=== PATIENT | female | born 1960 | race Hispanic/Latino ===

== ENCOUNTER → 2017-04-11 | Outpatient (CLI) | payer MEDICARE ==
[~2017-04-11] MED LIST: AMLO5TAB2 PO; ASPI-1005 PO; ATOR20TA65 PO; CARV25TA PO; CLOP75TA32 PO; DULO30CA51 PO; HYDR-4153 PO; HYOS-7 PO; INSU3INS5 SQ; LINA5TAB PO; LISI-613 PO; METO200T49 PO; METO25 PO; METO5 PO; METO50 PO; METO50TA18 PO; ONDA4TAB10 PO; REGADENOSON 0.4 MG/5 ML PF SYG IVP SCH; TRAM50TA4 PO; TYL3 PO
== END | disposition home or self-care (01) ==
LOC: RAH 04-04 09:26
PROVIDERS: ATTEND Family Medicine
DX: I51.7 Cardiomegaly (principal); I34.0 Nonrheumatic mitral (valve) insufficiency; R94.31 Abnormal electrocardiogram [ECG] [EKG]
CPT/HCPCS: 78452; 93017; 93306; 96374; A9500 ×2; J2785

== ENCOUNTER → 2017-06-15 | Outpatient (CLI) | payer MEDICARE ==
[~2017-06-15] MED LIST changes: -REGADENOSON 0.4 MG/5 ML PF SYG IVP SCH
== END | disposition home or self-care (01) ==
LOC: SHCH 14:25
PROVIDERS: ATTEND Internal Medicine Cardiovascular Disease
DX: I10 Essential (primary) hypertension (principal)
CPT/HCPCS: 93306

== ENCOUNTER → 2017-06-25 | Outpatient (CLI) | payer MEDICARE ==
[~2017-06-25] MED LIST changes: +REGADENOSON 0.4 MG/5 ML PF SYG IVP SCH
== END | disposition home or self-care (01) ==
LOC: SHCH 06-22 07:52
PROVIDERS: ATTEND Internal Medicine Cardiovascular Disease
DX: I50.9 Heart failure, unspecified (principal)
CPT/HCPCS: 78452; 93017; 96374; A9500 ×2; J2785

== ENCOUNTER 2017-07-06 06:01 | Inpatient (IN) | payer MEDICARE ==
[2017-07-04 10:23] VITALS: BP 187/85
[2017-07-04 10:40] LABS: BASOPHILS % (AUTO) 1.5 % (0.0-5.0); EOSINOPHILS % (AUTO) 3.5 % (0.0-8.0); HEMATOCRIT 43.8 % (36-48); LYMPHOCYTES % (AUTO) 18.9 % (21.0-51.0); MEAN CORPUSCULAR HEMOGLOBIN 28.6 pg (27.0-33.0); MEAN CORPUSCULAR HGB CONC 33.2 g/dL (32.0-36.0); MEAN CORPUSCULAR VOLUME 86.2 fL (79-99); MONOCYTES % (AUTO) 8.7 % (3.0-13.0); NEUTROPHILS % (AUTO) 67.4 % (40.0-77.0); PLATELET COUNT (AUTO) 269 K/uL (130-400); RED BLOOD CELL COUNT(AUTO) 5.08 MIL/uL (4.00-5.50); RED CELL DISTRIBUTION WIDTH 17.3 % (11.0-15.5)
[2017-07-04 10:46] LABS: CREATININE 5.5 mg/dL (0.5-1.5); POTASSIUM 5.2 mmol/L (3.5-5.1)
[2017-07-04 10:58] LABS: INR 0.95 (0.85-1.15); PARTIAL THROMBOPLASTIN TIME 26.4 SEC (26.3-35.5)
[~2017-07-06] VITALS: Ht 157.5 cm; Wt 89.2 kg
[2017-07-06] VITALS (45 sets, daily range): BP systolic 118–185; BP diastolic 56–110
[~2017-07-06 06:01] MED LIST changes: -ASPI-1005 PO; -ATOR20TA65 PO; -CARV25TA PO; -HYOS-7 PO; -LINA5TAB PO; -METO25 PO; -METO5 PO; -METO50 PO; -METO50TA18 PO; -ONDA4TAB10 PO; -REGADENOSON 0.4 MG/5 ML PF SYG IVP SCH; -TRAM50TA4 PO; -TYL3 PO
[2017-07-06] MEDS ORDERED: HEPARIN SODIUM 1000UNIT/ML 10ML VIAL ONE (07:09)
[2017-07-06] MEDS ORDERED: LIDOCAINE HCL 2% 20ML ONE (07:09)
[2017-07-06] MEDS ORDERED: ISOVUE-370 50ML VIAL IV ONE (07:09)
[2017-07-06] MEDS ORDERED: IOPAMIDOL-370 100 ML VIAL IV ONE ×2 (07:09→07:53)
[2017-07-06] MEDS ORDERED: NITROGLYCERIN 4.1 GM SPRAY TL ONE (07:50)
[2017-07-06] MEDS ORDERED: ASPIRIN 81MG TAB.CHEW ONE (08:33)
[2017-07-06] MEDS ORDERED: CLOPIDOGREL BISULFATE 300 MG TAB ONE (08:33)
[2017-07-06] MEDS ORDERED: ACETAMINOPHEN-CODEINE 300/30MG TAB PO PRN ×4 (08:45→13:15)
[2017-07-06] MEDS ORDERED: ONDANSETRON HCL 4 MG/2 ML VIAL IVP SCH ×2 (08:45→09:00)
[2017-07-06] MEDS ORDERED: MORPHINE SULFATE 5 MG/ML VIAL IVP SCH (09:00)
[2017-07-06] MEDS: CLOPIDOGREL BISULFATE 75 MG TAB PO SCH (09:00)
[2017-07-06] MEDS ORDERED: DEXTROSE 50%-WATER 50 ML DISP.SYRIN IV PRN (09:00)
[2017-07-06] MEDS: DULOXETINE HCL 30 MG CAP PO SCH (09:00)
[2017-07-06] MEDS: ASPIRIN 81MG TAB.CHEW PO SCH (09:00)
[2017-07-06] MEDS: LISINOPRIL 20 MG TABLET PO SCH ×2 (09:00→21:00)
[2017-07-06] MEDS: INSULIN HUMULIN R 100 UNIT/ML 3ML SQ SCH ×3 (11:30→21:00)
[2017-07-06 12:02] LABS: INR 1.03 (0.85-1.15); PARTIAL THROMBOPLASTIN TIME 82.5 SEC (26.3-35.5); PROTHROMBIN TIME 10.8 SEC (9.6-11.6)
[2017-07-06] MEDS ORDERED: ONDANSETRON HCL 4 MG/2 ML VIAL IV PRN (13:15)
[2017-07-06] MEDS ORDERED: GUAIFENESIN-DM 200/20 MG 10 ML PO PRN (13:15)
[2017-07-06] MEDS ORDERED: ACETAMINOPHEN 325 MG TAB PO PRN (13:15)
[2017-07-06] MEDS ORDERED: NITROGLYCERIN 0.4 MG SL TAB SL PRN (13:15)
[2017-07-06] MEDS ORDERED: LACTULOSE 20 GM/30 ML UDCUP PO PRN (13:15)
[2017-07-06] MEDS: HYDRALAZINE HCL 25 MG TABLET PO SCH ×3 (14:00→21:00)
[2017-07-06 15:20] LABS: PARTIAL THROMBOPLASTIN TIME 28.1 SEC (26.3-35.5); PROTHROMBIN TIME 10.5 SEC (9.6-11.6)
[2017-07-06] MEDS: AMLODIPINE BESYLATE 5 MG TAB PO SCH ×2 (15:32→21:00)
[2017-07-06] MEDS: ACETAMINOPHEN 325 MG TAB PO PRN ×2 (15:37→20:31)
[2017-07-06] MEDS ORDERED: ATROPINE SULFATE 0.1 MG/ML 10 ML SYG IVP ONE (15:51)
[2017-07-06] MEDS: HYDRALAZINE HCL 20 MG/ML VIAL IV PRN ×3 (16:20→20:31)
[2017-07-06] MEDS ORDERED: METOPROLOL TARTRATE 1 MG/ML 5ML VIAL IV ONE (16:42)
[2017-07-06] MEDS ORDERED: METOPROLOL TARTRATE 1 MG/ML 5ML VIAL IV SCH (16:45)
[2017-07-06] MEDS ORDERED: MORPHINE SULFATE 2 MG/ML 1ML SYG ONE ×3 (16:49→18:01)
[2017-07-06 17:12] LABS: HEMATOCRIT 31.2 % (36-48)
[2017-07-06] MEDS ORDERED: SODIUM POLYSTYRENE SULFONATE 15 GM/60 ML ML PO SCH (17:30)
[2017-07-06 18:44] LABS: BASOPHILS % (AUTO) 0.9 % (0.0-5.0); EOSINOPHILS % (AUTO) 2.3 % (0.0-8.0); LYMPHOCYTES % (AUTO) 11.8 % (21.0-51.0); MEAN CORPUSCULAR HEMOGLOBIN 28.5 pg (27.0-33.0); MEAN CORPUSCULAR HGB CONC 33.1 g/dL (32.0-36.0); MONOCYTES % (AUTO) 8.7 % (3.0-13.0); NEUTROPHILS % (AUTO) 76.3 % (40.0-77.0); PLATELET COUNT (AUTO) 240 K/uL (130-400); RED BLOOD CELL COUNT(AUTO) 3.73 MIL/uL (4.00-5.50); WHITE BLOOD COUNT (AUTO) 11.4 K/uL (4.8-10.8)
[2017-07-06] MEDS ORDERED: MORPHINE SULFATE 2 MG/ML 1ML SYG IVP PRN ×2 (19:45)
[2017-07-06] MEDS: MORPHINE SULFATE 4 MG/1ML SYG IV PRN (19:55)
[2017-07-06] MEDS ORDERED: SODIUM CHLORIDE 0.9% 1000ML 1,000 ML IV ONE (20:15)
[2017-07-06] MEDS ORDERED: PHARMACY COMMUNICATION MISC STA (20:44)
[2017-07-06] MEDS ORDERED: DESMOPRESSIN ACETATE IJ SCH (21:00)
[2017-07-06] MEDS: FAMOTIDINE 20MG TAB 20 MG TAB PO SCH (21:00)
[2017-07-06] MEDS: INSULIN HUMULIN 70/30 100 UNIT/ML 3ML SQ SCH (21:00)
[2017-07-06] MEDS ORDERED: METOPROLOL TARTRATE 50 MG TAB PO SCH (21:00)
[2017-07-06] MEDS ORDERED: SODIUM CHLORIDE 0.9% IJ SCH (21:00)
[2017-07-07] VITALS (18 sets, daily range): BP systolic 131–185; BP diastolic 46–86
[2017-07-07] MEDS: MORPHINE SULFATE 4 MG/1ML SYG IV PRN ×2 (03:18→17:32)
[2017-07-07 05:18] LABS: HEMATOCRIT 25.4 % (36-48); MEAN CORPUSCULAR HGB CONC 33.9 g/dL (32.0-36.0); MEAN CORPUSCULAR VOLUME 85.3 fL (79-99); PLATELET COUNT (AUTO) 255 K/uL (130-400); RED BLOOD CELL COUNT(AUTO) 2.98 MIL/uL (4.00-5.50); RED CELL DISTRIBUTION WIDTH 17.2 % (11.0-15.5); WHITE BLOOD COUNT (AUTO) 11.7 K/uL (4.8-10.8)
[2017-07-07 05:32] LABS: INR 0.98 (0.85-1.15); PARTIAL THROMBOPLASTIN TIME 25.8 SEC (26.3-35.5); PROTHROMBIN TIME 10.3 SEC (9.6-11.6)
[2017-07-07 05:39] LABS: CREATININE 6.7 mg/dL (0.5-1.5); POTASSIUM 5.7 mmol/L (3.5-5.1)
[2017-07-07] MEDS: INSULIN HUMULIN R 100 UNIT/ML 3ML SQ SCH ×4 (06:09→21:00)
[2017-07-07] MEDS: ASPIRIN 81MG TAB.CHEW PO SCH (08:32)
[2017-07-07] MEDS: CLOPIDOGREL BISULFATE 75 MG TAB PO SCH (08:32)
[2017-07-07] MEDS: AMLODIPINE BESYLATE 5 MG TAB PO SCH ×2 (09:00→21:01)
[2017-07-07] MEDS: INSULIN HUMULIN 70/30 100 UNIT/ML 3ML SQ SCH ×2 (09:00→21:04)
[2017-07-07] MEDS: HYDRALAZINE HCL 25 MG TABLET PO SCH ×3 (09:14→21:02)
[2017-07-07] MEDS: FAMOTIDINE 20MG TAB 20 MG TAB PO SCH ×2 (09:15→21:01)
[2017-07-07] MEDS: DULOXETINE HCL 30 MG CAP PO SCH (09:15)
[2017-07-07 17:47] LABS: HEMATOCRIT 30.5 % (36-48)
[2017-07-07] MEDS ORDERED: ATORVASTATIN CALCIUM 20 MG TABLET PO SCH (21:00)
[2017-07-07] MEDS: METOPROLOL TARTRATE 50 MG TAB PO SCH (21:02)
[2017-07-08] VITALS: BP 125/55
[2017-07-08 03:01] VITALS: BP 140/66
[2017-07-08 03:09] LABS: HEMATOCRIT 26.7 % (36-48); MEAN CORPUSCULAR HEMOGLOBIN 28.5 pg (27.0-33.0); MEAN CORPUSCULAR HGB CONC 33.7 g/dL (32.0-36.0); MEAN CORPUSCULAR VOLUME 84.6 fL (79-99); PLATELET COUNT (AUTO) 161 K/uL (130-400); RED BLOOD CELL COUNT(AUTO) 3.15 MIL/uL (4.00-5.50); RED CELL DISTRIBUTION WIDTH 16.4 % (11.0-15.5); WHITE BLOOD COUNT (AUTO) 11.7 K/uL (4.8-10.8)
[2017-07-08 03:17] LABS: CREATININE 4.3 mg/dL (0.5-1.5); MAGNESIUM 2.2 mg/dL (1.80-2.40); PHOSPHORUS 4.6 mg/dL (2.5-4.9); POTASSIUM 4.5 mmol/L (3.5-5.1)
[2017-07-08] MEDS: INSULIN HUMULIN R 100 UNIT/ML 3ML SQ SCH ×2 (06:15→12:27)
[2017-07-08 07:00] VITALS: BP 170/81
[2017-07-08] MEDS ORDERED: LISINOPRIL 20 MG TABLET PO SCH (09:00)
[2017-07-08] MEDS: INSULIN HUMULIN 70/30 100 UNIT/ML 3ML SQ SCH (09:00)
[2017-07-08] MEDS: ASPIRIN 81MG TAB.CHEW PO SCH (09:46)
[2017-07-08] MEDS: CLOPIDOGREL BISULFATE 75 MG TAB PO SCH (09:47)
[2017-07-08] MEDS: FAMOTIDINE 20MG TAB 20 MG TAB PO SCH (09:47)
[2017-07-08] MEDS: DULOXETINE HCL 30 MG CAP PO SCH (09:47)
[2017-07-08] MEDS: METOPROLOL TARTRATE 50 MG TAB PO SCH (09:48)
[2017-07-08] MEDS: HYDRALAZINE HCL 25 MG TABLET PO SCH (09:49)
[2017-07-08] MEDS: AMLODIPINE BESYLATE 5 MG TAB PO SCH (09:49)
[2017-07-08] MEDS ORDERED: ATOR20TA65 PO (10:19)
[2017-07-08] MEDS ORDERED: METO50 PO (10:19)
[2017-07-08] MEDS ORDERED: ASPI-1005 PO (10:19)
[2017-07-08 11:00] VITALS: BP 170/79
[2017-07-08] MEDS ORDERED: METOPROLOL TARTRATE 50 MG TAB PO SCH (21:00)
== END 2017-07-08 15:25 | disposition home or self-care (01) | DRG 248 ==
LOC: DAH 06:01 → DAHIP 06:02 → INTOOBSV 06:02 → OBSVTOIN 06:02 → DAH 06:02 → 2AH 15:49 → 2BH 18:06 → 2AH 07-07 19:44
PROVIDERS: ADMIT Internal Medicine; ATTEND Internal Medicine
PROC: 4A023N7 Measurement of Cardiac Sampling and Pressure, Left Heart, Percutaneous Approach (ICD-10-PCS; principal; 2017-07-06)
PROC: 02703DZ Dilation of Coronary Artery, One Artery with Intraluminal Device, Percutaneous Approach (ICD-10-PCS; 2017-07-06)
PROC: B2111ZZ Fluoroscopy of Multiple Coronary Arteries using Low Osmolar Contrast (ICD-10-PCS; 2017-07-06)
PROC: B2151ZZ Fluoroscopy of Left Heart using Low Osmolar Contrast (ICD-10-PCS; 2017-07-06)
PROC: B2131ZZ Fluoroscopy of Multiple Coronary Artery Bypass Grafts using Low Osmolar Contrast (ICD-10-PCS; 2017-07-06)
PROC: 30233R1 Transfusion of Nonautologous Platelets into Peripheral Vein, Percutaneous Approach (ICD-10-PCS; 2017-07-06)
PROC: 30233N1 Transfusion of Nonautologous Red Blood Cells into Peripheral Vein, Percutaneous Approach (ICD-10-PCS; 2017-07-06)
DX: T82.855A Stenosis of coronary artery stent, initial encounter (principal); I21.3 ST elevation (STEMI) myocardial infarction of unspecified site; D69.1 Qualitative platelet defects; E11.21 Type 2 diabetes mellitus with diabetic nephropathy; D62 Acute posthemorrhagic anemia; E11.22 Type 2 diabetes mellitus with diabetic chronic kidney disease; I12.0 Hypertensive chronic kidney disease with stage 5 chronic kidney disease or end stage renal disease; N18.6 End stage renal disease; E11.319 Type 2 diabetes mellitus with unspecified diabetic retinopathy without macular edema; E78.00 Pure hypercholesterolemia, unspecified; E78.5 Hyperlipidemia, unspecified; E87.5 Hyperkalemia; Y83.8 Other surgical procedures as the cause of abnormal reaction of the patient, or of later complication, without mention of misadventure at the time of the procedure; F32.9 Major depressive disorder, single episode, unspecified; F41.9 Anxiety disorder, unspecified; I25.119 Atherosclerotic heart disease of native coronary artery with unspecified angina pectoris; Z79.02 Long term (current) use of antithrombotics/antiplatelets; Z79.4 Long term (current) use of insulin; Z79.899 Other long term (current) drug therapy; Z99.2 Dependence on renal dialysis; Z88.8 Allergy status to other drugs, medicaments and biological substances; Z95.1 Presence of aortocoronary bypass graft; Z83.3 Family history of diabetes mellitus; Z82.49 Family history of ischemic heart disease and other diseases of the circulatory system; Y92.89 Other specified places as the place of occurrence of the external cause
CPT/HCPCS: 36415; 71045; 76882; 80048; 82948; 83735; 84100; 85014; 85018; 85025; 85027; 85378; 85384; 85610; 85730; 86850; 86900; 86901; 86922; 90935; 93005; 93458; A4606; C1725; C1769; C1887; C1894; C9600; J0360; J0461; J1644; J1815; J2270; J2597; J3490; J7030; P9012; P9016; P9034; Q9967

== ENCOUNTER → 2017-07-16 | Outpatient (CLI) | payer MEDICARE ==
[~2017-07-16] VITALS: Ht 157.5 cm; Wt 90.9 kg
[~2017-07-16] MED LIST changes: +ASPI-1005 PO; +ATOR20TA65 PO; -METO200T49 PO; +METO25 PO; +METO50 PO; +METO50TA18 PO; +ONDA4TAB10 PO; +PHARMACY COMMUNICATION MISC SCH; +TRAM50TA4 PO
[2017-07-16 11:24] VITALS: BP 180/80
[2017-07-16 12:00] LABS: BASOPHILS % (AUTO) 1.2 % (0.0-5.0); EOSINOPHILS % (AUTO) 4.4 % (0.0-8.0); HEMATOCRIT 33.3 % (36-48); LYMPHOCYTES % (AUTO) 15.2 % (21.0-51.0); MEAN CORPUSCULAR HEMOGLOBIN 28.4 pg (27.0-33.0); MEAN CORPUSCULAR HGB CONC 32.8 g/dL (32.0-36.0); MEAN CORPUSCULAR VOLUME 86.5 fL (79-99); MONOCYTES % (AUTO) 10.4 % (3.0-13.0); NEUTROPHILS % (AUTO) 68.8 % (40.0-77.0); PLATELET COUNT (AUTO) 262 K/uL (130-400); RED BLOOD CELL COUNT(AUTO) 3.85 MIL/uL (4.00-5.50); RED CELL DISTRIBUTION WIDTH 16.5 % (11.0-15.5)
[2017-07-16 12:12] LABS: INR 0.95 (0.85-1.15)
[2017-07-16 12:18] LABS: ALBUMIN 4.3 g/dL (3.5-5.0); BILIRUBIN,TOTAL 1.1 mg/dL (0.2-1.0); CREATININE 5.9 mg/dL (0.5-1.5); POTASSIUM 5.1 mmol/L (3.5-5.1); TOTAL PROTEIN, SERUM 8.6 g/dL (6.0-8.3)
[2017-07-16 12:49] LABS: HEMOGLOBIN A1C 7.1 % (4.0-6.0)
[2017-07-16 13:01] LABS: PLATELET FUNCTION ANALYSIS ADP 122 SEC (62-100); PLATELET FUNCTION ANALYSIS EPI > 192 SEC (55-192)
[2017-07-16 13:02] LABS: HEMATOCRIT 33.3 % (36-48); PLATELET COUNT (AUTO) 262 K/uL (130-400)
== END | disposition home or self-care (01) ==
LOC: DAH 10:00 → EDSTATUS 07-17 10:00
PROVIDERS: ATTEND Thoracic Surgery (Cardiothoracic Vascular Surgery)
DX: Z01.818 Encounter for other preprocedural examination (principal); I25.10 Atherosclerotic heart disease of native coronary artery without angina pectoris; I13.2 Hypertensive heart and chronic kidney disease with heart failure and with stage 5 chronic kidney disease, or end stage renal disease; E11.22 Type 2 diabetes mellitus with diabetic chronic kidney disease; N18.6 End stage renal disease; I50.9 Heart failure, unspecified; E78.00 Pure hypercholesterolemia, unspecified; E78.5 Hyperlipidemia, unspecified
CPT/HCPCS: 36415; 71046; 80053; 83036; 85025; 85576; 85610; 85730; 86850; 86900; 86901; 86922; 93005; 94010

== ENCOUNTER 2017-08-10 11:00 | Inpatient (IN) | payer MEDICARE ==
[~2017-08-10] VITALS: Ht 157.5 cm; Wt 92.0 kg
[~2017-08-10 11:00] MED LIST changes: -METO25 PO; -METO50 PO; -METO50TA18 PO; -ONDA4TAB10 PO; -PHARMACY COMMUNICATION MISC SCH; -TRAM50TA4 PO
[2017-08-10 16:31] VITALS: BP 149/65
[2017-08-10] MEDS ORDERED: TRAM50TA4 PO (16:35)
[2017-08-10] MEDS ORDERED: ONDA4TAB10 PO (16:35)
[2017-08-10] MEDS ORDERED: METO50TA18 PO (16:35)
[2017-08-10 16:47] LABS: BASOPHILS % (AUTO) 2.1 % (0.0-5.0); MEAN CORPUSCULAR HEMOGLOBIN 28.1 pg (27.0-33.0); MEAN CORPUSCULAR HGB CONC 32.1 g/dL (32.0-36.0); MEAN CORPUSCULAR VOLUME 87.7 fL (79-99); MONOCYTES % (AUTO) 8.4 % (3.0-13.0); NEUTROPHILS % (AUTO) 66.5 % (40.0-77.0); PLATELET COUNT (AUTO) 287 K/uL (130-400); RED BLOOD CELL COUNT(AUTO) 4.22 MIL/uL (4.00-5.50); RED CELL DISTRIBUTION WIDTH 17.7 % (11.0-15.5); WHITE BLOOD COUNT (AUTO) 9.3 K/uL (4.8-10.8)
[2017-08-10 16:54] LABS: HEMATOCRIT 36.7 % (36-48); PLATELET COUNT (AUTO) 293 K/uL (130-400)
[2017-08-10 17:00] LABS: HEMOGLOBIN A1C 6.2 % (4.0-6.0)
[2017-08-10 17:03] LABS: INR 0.97 (0.85-1.15); PARTIAL THROMBOPLASTIN TIME 28.2 SEC (26.3-35.5); PROTHROMBIN TIME 10.2 SEC (9.6-11.6)
[2017-08-10 17:13] LABS: PLATELET FUNCTION ANALYSIS EPI 135 SEC (55-192)
[2017-08-10 17:20] LABS: ALBUMIN 3.8 g/dL (3.5-5.0); CREATININE 5.3 mg/dL (0.5-1.5); POTASSIUM 5.2 mmol/L (3.5-5.1); TOTAL PROTEIN, SERUM 7.5 g/dL (6.0-8.3)
[2017-08-13] VITALS (16 sets, daily range): BP systolic 116–156; BP diastolic 52–82
[2017-08-13] MEDS ORDERED: CEFUROXIME SODIUM 1.5 GM VIAL IVP ONE (08:00)
[2017-08-13] MEDS ORDERED: PAPAVERINE HCL 30 MG/ML 2ML VIAL ONE (12:08)
[2017-08-13] MEDS ORDERED: BACITRACIN 50,000 UNIT VIAL ONE (12:09)
[2017-08-13] MEDS ORDERED: SODIUM CHLORIDE 0.9% 1000ML 1,000 ML IV ONE (12:16)
[2017-08-13] MEDS ORDERED: CEFUROXIME SODIUM 1.5 GM VIAL ONE (12:16)
[2017-08-13] MEDS ORDERED: FENTANYL CITRATE PF 50 MCG/1 ML 2ML VIAL ONE (12:27)
[2017-08-13] MEDS ORDERED: LIDOCAINE PF 2% 5ML ABBOJECT ONE (12:27)
[2017-08-13] MEDS ORDERED: GLYCOPYRROLATE 0.2 MG/ML 5 ML VIAL ONE (12:27)
[2017-08-13] MEDS ORDERED: DEXAMETHASONE SOD PHOSPHATE 10MG/ML 1ML VIAL ONE (12:27)
[2017-08-13] MEDS ORDERED: PROPOFOL 10 MG/ML 20ML VIAL IV ONE (12:28)
[2017-08-13] MEDS ORDERED: MIDAZOLAM HCL 1 MG/ML 2ML VIAL ONE (12:28)
[2017-08-13] MEDS ORDERED: NITROGLYCERIN 50 MG/D5% WATER 1 BOT ONE (13:19)
[2017-08-13] MEDS ORDERED: FENTANYL CITRATE PF 50 MCG/1 ML 20ML VIAL IJ ONE (13:22)
[2017-08-13 13:52] LABS: ABG BASE EXCESS 0.5 mmol/L (-2.0-3.0); ABG HCO3 25.1 mmol/L (21.0-28.0); ABG OXYGEN SATURATION 98.8 % (95.0-99.0); ABG PCO2 40 mmHg (32-45)
[2017-08-13 13:58] LABS: ABG BASE EXCESS -0.5 mmol/L (-2.0-3.0); ABG HCO3 26.4 mmol/L (21.0-28.0); ABG PCO2 55 mmHg (32-45)
[2017-08-13] MEDS ORDERED: HEPARIN SODIUM 1000UNIT/ML 10ML VIAL ONE (14:34)
[2017-08-13] MEDS ORDERED: THROMBIN-JMI 5000 UNIT/VIAL TP ONE (14:35)
[2017-08-13] MEDS ORDERED: SODIUM CHLORIDE 0.9% 500ML 500 ML IV SCH (14:46)
[2017-08-13] MEDS ORDERED: GLUCAGON 1MG KIT 1 MG ML IM PRN (15:00)
[2017-08-13] MEDS ORDERED: PROPOFOL 1000 MG/100 ML 100 ML IV PRN (15:00)
[2017-08-13] MEDS ORDERED: CALCIUM GLUCONATE 1 GM in SODIUM CHLORIDE 0.9% 50 ML IV PRN (15:00)
[2017-08-13] MEDS ORDERED: ONDANSETRON HCL 4 MG/2 ML VIAL IV PRN (15:00)
[2017-08-13] MEDS ORDERED: ACETAMINOPHEN 650 MG SUPPOSITORY RC PRN (15:00)
[2017-08-13] MEDS ORDERED: SODIUM BICARB 8.4% 50ML SYRINGE IV PRN (15:00)
[2017-08-13] MEDS ORDERED: HYDROCODONE/ACETAMINOPHEN 5/325 MG TAB PO PRN (15:00)
[2017-08-13] MEDS ORDERED: ACETAMINOPHEN 325 MG TAB PO PRN (15:00)
[2017-08-13] MEDS ORDERED: SODIUM CHLORIDE 0.9% 10 ML VIAL IVP PRN (15:00)
[2017-08-13] MEDS ORDERED: ALBUMIN (HUMAN) 5% 250 ML IV PRN (15:00)
[2017-08-13] MEDS ORDERED: SODIUM CHLORIDE 0.9% 250 ML IV PRN (15:00)
[2017-08-13] MEDS ORDERED: NOREPINEPHRINE 4MG/NS 250ML 250 ML IV PRN (15:00)
[2017-08-13] MEDS ORDERED: MORPHINE SULFATE 4 MG/1ML SYG IV PRN (15:00)
[2017-08-13] MEDS ORDERED: DEXTROSE 50%-WATER 50 ML DISP.SYRIN IV PRN (15:00)
[2017-08-13] MEDS ORDERED: MAGNESIUM 2GM PREMIX 50ML 50 ML IV PRN (15:00)
[2017-08-13] MEDS ORDERED: POTASSIUM CHLORIDE 20MEQ/100ML 100 ML IV PRN (15:00)
[2017-08-13] MEDS ORDERED: POTASSIUM PHOS 15 mMOL+NS250ML 250 ML IV PRN (15:00)
[2017-08-13] MEDS ORDERED: EPINEPHRINE 2 MG in SODIUM CHLORIDE 0.9% 250 ML IV PRN (15:00)
[2017-08-13] MEDS ORDERED: MORPHINE SULFATE 2 MG/ML 1ML SYG IV PRN (15:00)
[2017-08-13] MEDS ORDERED: NICARDIPINE HCL 100 MG in SODIUM CHLORIDE 0.9% 100 ML IV PRN (15:00)
[2017-08-13] MEDS ORDERED: AMINOCAPROIC ACID 15,000 MG in SODIUM CHLORIDE 0.9% 250 ML IV SCH (15:00)
[2017-08-13] MEDS ORDERED: SODIUM CHLORIDE 0.9% 1000ML 1,000 ML IV SCH (15:00)
[2017-08-13] MEDS ORDERED: INSULIN REGULAR, HUMAN 3ML 100 UNIT in SODIUM CHLORIDE 0.9% 99 ML IV SCH ×2 (15:00)
[2017-08-13 15:55] LABS: ABG BASE EXCESS -3.6 mmol/L (-2.0-3.0); ABG HCO3 21.9 mmol/L (21.0-28.0); ABG OXYGEN SATURATION 95.5 % (95.0-99.0); ABG PCO2 42 mmHg (32-45)
[2017-08-13 15:58] LABS: HEMATOCRIT 30.8 % (36-48); MEAN CORPUSCULAR HEMOGLOBIN 29.1 pg (27.0-33.0); MEAN CORPUSCULAR HGB CONC 33.5 g/dL (32.0-36.0); MEAN CORPUSCULAR VOLUME 86.7 fL (79-99); PLATELET COUNT (AUTO) 282 K/uL (130-400); RED BLOOD CELL COUNT(AUTO) 3.55 MIL/uL (4.00-5.50); WHITE BLOOD COUNT (AUTO) 27.7 K/uL (4.8-10.8)
[2017-08-13 16:07] LABS: CREATININE 6.9 mg/dL (0.5-1.5); MAGNESIUM 2.1 mg/dL (1.80-2.40); PHOSPHORUS 4.6 mg/dL (2.5-4.9); POTASSIUM 4.6 mmol/L (3.5-5.1)
[2017-08-13] MEDS ORDERED: SODIUM BICARB 50MEQ 50ML VIAL ONE (16:22)
[2017-08-13] MEDS: NITROGLYCERIN 50 MG/D5% WATER 250 BOT IV SCH (20:25)
[2017-08-13 20:27] LABS: ABG BASE EXCESS -2.9 mmol/L (-2.0-3.0); ABG HCO3 22.9 mmol/L (21.0-28.0); ABG OXYGEN SATURATION 94.3 % (95.0-99.0); ABG PCO2 43 mmHg (32-45)
[2017-08-13 21:57] LABS: ABG BASE EXCESS -0.9 mmol/L (-2.0-3.0); ABG HCO3 23.9 mmol/L (21.0-28.0); ABG OXYGEN SATURATION 94.6 % (95.0-99.0); ABG PCO2 40 mmHg (32-45)
[2017-08-13] MEDS ORDERED: ONDANSETRON HCL MDV 20ML 2 MG/ML VIAL ONE (22:51)
[2017-08-13] MEDS: CEFUROXIME SODIUM 1.5 GM VIAL IVP SCH (22:54)
[2017-08-13] MEDS ORDERED: CEFUROXIME 1.5GM+NS 100ML 100 ML IV SCH (23:00)
[2017-08-13] MEDS: HYDROCODONE/ACETAMINOPHEN 5/325 MG TAB PO PRN (23:47)
[2017-08-14] VITALS (22 sets, daily range): BP systolic 108–168; BP diastolic 47–90
[2017-08-14 04:20] LABS: HEMATOCRIT 30.1 % (36-48); MEAN CORPUSCULAR HEMOGLOBIN 27.9 pg (27.0-33.0); MEAN CORPUSCULAR HGB CONC 32.1 g/dL (32.0-36.0); MEAN CORPUSCULAR VOLUME 86.8 fL (79-99); PLATELET COUNT (AUTO) 245 K/uL (130-400); RED BLOOD CELL COUNT(AUTO) 3.47 MIL/uL (4.00-5.50); RED CELL DISTRIBUTION WIDTH 17.1 % (11.0-15.5); WHITE BLOOD COUNT (AUTO) 18.4 K/uL (4.8-10.8)
[2017-08-14 04:39] LABS: CREATININE 7.7 mg/dL (0.5-1.5); MAGNESIUM 2.1 mg/dL (1.80-2.40); PHOSPHORUS 4.7 mg/dL (2.5-4.9)
[2017-08-14 04:42] LABS: POTASSIUM 7.4 mmol/L (3.5-5.1)
[2017-08-14] MEDS ORDERED: CALCIUM GLUCONATE 1 GM/10 ML VIAL IV ONE (05:09)
[2017-08-14] MEDS ORDERED: SODIUM POLYSTYRENE SULFONATE 15 GM/60 ML ML ONE (05:09)
[2017-08-14] MEDS ORDERED: SODIUM POLYSTYRENE SULFONATE 15 GM/60 ML ML PO SCH (06:15)
[2017-08-14] MEDS ORDERED: CALCIUM GLUCONATE 1 GM/10 ML VIAL IV SCH (06:15)
[2017-08-14] MEDS: PANTOPRAZOLE 40 MG/VIAL IV SCH ×2 (09:00→10:09)
[2017-08-14] MEDS: CEFUROXIME SODIUM 1.5 GM VIAL IVP SCH ×2 (10:10→22:22)
[2017-08-14] MEDS: METOPROLOL TARTRATE 50 MG TAB PO SCH (17:17)
[2017-08-14] MEDS: EPOETIN ALFA 3,000 UNIT/ML ML SQ SCH (17:19)
[2017-08-14] MEDS: HYDROCODONE/ACETAMINOPHEN 5/325 MG TAB PO PRN (18:43)
[2017-08-15] VITALS (23 sets, daily range): BP systolic 105–171; BP diastolic 53–77
[2017-08-15 04:23] LABS: BASOPHILS % (AUTO) 0.5 % (0.0-5.0); EOSINOPHILS % (AUTO) 0.4 % (0.0-8.0); HEMATOCRIT 28.9 % (36-48); LYMPHOCYTES % (AUTO) 8.2 % (21.0-51.0); MEAN CORPUSCULAR HEMOGLOBIN 29.8 pg (27.0-33.0); MEAN CORPUSCULAR HGB CONC 34.4 g/dL (32.0-36.0); MEAN CORPUSCULAR VOLUME 86.5 fL (79-99); MONOCYTES % (AUTO) 10.7 % (3.0-13.0); NEUTROPHILS % (AUTO) 80.2 % (40.0-77.0); PLATELET COUNT (AUTO) 254 K/uL (130-400); RED BLOOD CELL COUNT(AUTO) 3.35 MIL/uL (4.00-5.50); RED CELL DISTRIBUTION WIDTH 17.2 % (11.0-15.5); WHITE BLOOD COUNT (AUTO) 17.3 K/uL (4.8-10.8)
[2017-08-15 04:34] LABS: ALBUMIN 2.5 g/dL (3.5-5.0); BILIRUBIN,TOTAL 0.6 mg/dL (0.2-1.0); CREATININE 5.5 mg/dL (0.5-1.5); POTASSIUM 4.4 mmol/L (3.5-5.1); TOTAL PROTEIN, SERUM 5.9 g/dL (6.0-8.3)
[2017-08-15] MEDS: NITROGLYCERIN 50 MG/D5% WATER 250 BOT IV SCH (05:41)
[2017-08-15] MEDS ORDERED: METOPROLOL TARTRATE 50 MG TAB PO SCH ×2 (09:00→16:00)
[2017-08-15] MEDS: METOPROLOL TARTRATE 50 MG TAB PO SCH (09:04)
[2017-08-15] MEDS: PANTOPRAZOLE SODIUM 40 MG TABLET.DR PO SCH (09:04)
[2017-08-15] MEDS: EPOETIN ALFA 3,000 UNIT/ML ML SQ SCH (09:05)
[2017-08-15] MEDS: ASPIRIN 81MG TAB.CHEW PO SCH (15:17)
[2017-08-15] MEDS: INSULIN HUMULIN R 100 UNIT/ML 3ML SQ SCH ×2 (16:30→21:05)
[2017-08-15] MEDS ORDERED: FUROSEMIDE 20 MG TABLET PO SCH (20:00)
[2017-08-15] MEDS: HYDRALAZINE HCL 25 MG TABLET PO SCH (21:03)
[2017-08-15] MEDS: ATORVASTATIN CALCIUM 20 MG TABLET PO SCH (21:03)
[2017-08-15] MEDS: METOPROLOL TARTRATE 25 MG TAB PO SCH (21:04)
[2017-08-16] VITALS (14 sets, daily range): BP systolic 124–160; BP diastolic 56–76
[2017-08-16] MEDS: HYDROCODONE/ACETAMINOPHEN 5/325 MG TAB PO PRN ×2 (04:32→17:25)
[2017-08-16] MEDS ORDERED: SODIUM CHLORIDE 0.9% 1000ML 1,000 ML IV ONE (06:26)
[2017-08-16] MEDS: INSULIN HUMULIN R 100 UNIT/ML 3ML SQ SCH ×4 (06:39→23:05)
[2017-08-16] MEDS: ASPIRIN 81 MG EC TAB PO SCH (09:00)
[2017-08-16] MEDS: ASPIRIN 81MG TAB.CHEW PO SCH (09:48)
[2017-08-16] MEDS: HYDRALAZINE HCL 25 MG TABLET PO SCH ×2 (09:48→16:01)
[2017-08-16] MEDS: PANTOPRAZOLE SODIUM 40 MG TABLET.DR PO SCH (09:48)
[2017-08-16] MEDS: METOPROLOL TARTRATE 25 MG TAB PO SCH ×2 (09:48→21:05)
[2017-08-16] MEDS: EPOETIN ALFA 3,000 UNIT/ML ML SQ SCH (16:28)
[2017-08-16] MEDS: ATORVASTATIN CALCIUM 20 MG TABLET PO SCH (21:05)
[2017-08-17 00:01] VITALS: BP 161/73
[2017-08-17 03:45] VITALS: BP 167/80
[2017-08-17] MEDS: HYDRALAZINE HCL 25 MG TABLET PO SCH ×2 (04:19→08:40)
[2017-08-17 04:52] LABS: BASOPHILS % (AUTO) 1.1 % (0.0-5.0); EOSINOPHILS % (AUTO) 3.1 % (0.0-8.0); HEMATOCRIT 30.8 % (36-48); LYMPHOCYTES % (AUTO) 10.9 % (21.0-51.0); MEAN CORPUSCULAR HGB CONC 33.5 g/dL (32.0-36.0); MEAN CORPUSCULAR VOLUME 86.5 fL (79-99); MONOCYTES % (AUTO) 9.2 % (3.0-13.0); NEUTROPHILS % (AUTO) 75.7 % (40.0-77.0); NUCLEATED RED BLOOD CELLS 0.3 % (0.0-0.19); PLATELET COUNT (AUTO) 280 K/uL (130-400); RED BLOOD CELL COUNT(AUTO) 3.56 MIL/uL (4.00-5.50); RED CELL DISTRIBUTION WIDTH 17.5 % (11.0-15.5); WHITE BLOOD COUNT (AUTO) 14.3 K/uL (4.8-10.8)
[2017-08-17 05:29] LABS: ALBUMIN 2.4 g/dL (3.5-5.0); BILIRUBIN,TOTAL 0.6 mg/dL (0.2-1.0); POTASSIUM 4.3 mmol/L (3.5-5.1); TOTAL PROTEIN, SERUM 6.5 g/dL (6.0-8.3)
[2017-08-17] MEDS: INSULIN HUMULIN R 100 UNIT/ML 3ML SQ SCH ×2 (06:39→12:33)
[2017-08-17 07:00] VITALS: BP 152/77
[2017-08-17] MEDS: ASPIRIN 81MG TAB.CHEW PO SCH (08:40)
[2017-08-17] MEDS: METOPROLOL TARTRATE 25 MG TAB PO SCH (08:40)
[2017-08-17] MEDS: PANTOPRAZOLE SODIUM 40 MG TABLET.DR PO SCH (08:40)
[2017-08-17] MEDS: ASPIRIN 81 MG EC TAB PO SCH (08:41)
[2017-08-17 11:00] VITALS: BP 162/72
[2017-08-17] MEDS ORDERED: METO25 PO (12:51)
== END 2017-08-17 16:35 | disposition home or self-care (01) | DRG 235 ==
LOC: EDSTATUS 11:00 → DAHIP 08-13 12:00 → 2CV 08-13 15:29 → 2BH 08-14 04:28 → 2AH 08-16 10:34
PROVIDERS: ADMIT Thoracic Surgery (Cardiothoracic Vascular Surgery); ATTEND Thoracic Surgery (Cardiothoracic Vascular Surgery)
PROC: 06BP4ZZ Excision of Right Saphenous Vein, Percutaneous Endoscopic Approach (ICD-10-PCS; 2017-08-13)
PROC: 02100Z9 Bypass Coronary Artery, One Artery from Left Internal Mammary, Open Approach (ICD-10-PCS; principal; 2017-08-13 12:37)
PROC: 021109W Bypass Coronary Artery, Two Arteries from Aorta with Autologous Venous Tissue, Open Approach (ICD-10-PCS; 2017-08-13 12:37)
PROC: 06BQ4ZZ Excision of Left Saphenous Vein, Percutaneous Endoscopic Approach (ICD-10-PCS; 2017-08-13 12:37)
PROC: 5A1D70Z Performance of Urinary Filtration, Intermittent, Less than 6 Hours Per Day (ICD-10-PCS; 2017-08-14)
PROC: 5A1D70Z Performance of Urinary Filtration, Intermittent, Less than 6 Hours Per Day (ICD-10-PCS; 2017-08-16)
DX: I25.10 Atherosclerotic heart disease of native coronary artery without angina pectoris (principal); J96.90 Respiratory failure, unspecified, unspecified whether with hypoxia or hypercapnia; N18.6 End stage renal disease; I12.0 Hypertensive chronic kidney disease with stage 5 chronic kidney disease or end stage renal disease; D64.9 Anemia, unspecified; E11.21 Type 2 diabetes mellitus with diabetic nephropathy; E11.22 Type 2 diabetes mellitus with diabetic chronic kidney disease; E11.51 Type 2 diabetes mellitus with diabetic peripheral angiopathy without gangrene; E78.5 Hyperlipidemia, unspecified; E87.5 Hyperkalemia; Z82.49 Family history of ischemic heart disease and other diseases of the circulatory system; Z95.5 Presence of coronary angioplasty implant and graft; Z83.3 Family history of diabetes mellitus; Z99.2 Dependence on renal dialysis
CPT/HCPCS: 36415; 71045; 71046; 80048; 80053; 80061; 82330; 82435; 82803; 82947; 82948; 83036; 83605; 83735; 84100; 84132; 84295; 85018; 85025; 85027; 85347; 85576; 85610; 85730; 86850; 86900; 86901; 86922; 90935; 93005; 93880; 94002; 94150; 97039; A4218; A7048; C9113; J0610; J0697; J1100; J1644; J1815; J2001; J2250; J2440; J2704; J3010; J3490; J7030; J7040

== ENCOUNTER → 2018-01-09 | Outpatient (CLI) | payer MEDICARE ==
[~2018-01-09] MED LIST changes: +ALBUTEROL SULFATE 0.083% 2.5 MG/3 ML INH IH ONE; -AMLO5TAB2 PO; -LISI-613 PO; +METO25 PO; +ONDA4TAB10 PO; +TRAM50TA4 PO
== END | disposition home or self-care (01) ==
LOC: RESP 14:09
PROVIDERS: ATTEND Internal Medicine Cardiovascular Disease
DX: R06.00 Dyspnea, unspecified (principal); I12.0 Hypertensive chronic kidney disease with stage 5 chronic kidney disease or end stage renal disease; E11.22 Type 2 diabetes mellitus with diabetic chronic kidney disease; E78.5 Hyperlipidemia, unspecified; N18.6 End stage renal disease
CPT/HCPCS: 94060; 94727; 94729

== ENCOUNTER 2019-06-09 05:42 | Day surgery (SDC) | payer MEDICARE ==
[~2019-06-09] VITALS: Ht 156.8 cm; Wt 81.6 kg
[~2019-06-09 05:42] MED LIST changes: -ALBUTEROL SULFATE 0.083% 2.5 MG/3 ML INH IH ONE; +AMLO5TAB9 PO; -ASPI-1005 PO; -ATOR20TA65 PO; -CLOP75TA32 PO; -DULO30CA51 PO; -HYDR-4153 PO; +HYDR-4154 PO; +INSU100I26 SQ; -INSU3INS5 SQ; +LINA72CA PO; +METO-391 PO; -METO25 PO; -ONDA4TAB10 PO; -TRAM50TA4 PO
[2019-06-09] MEDS ORDERED: SODIUM CHLORIDE 0.9% 1000ML 1,000 ML IV ONE (05:56)
[2019-06-09 06:10] VITALS: BP 176/80
[2019-06-09] MEDS ORDERED: PROPOFOL 10 MG/ML 20ML VIAL IV ONE (07:16)
[2019-06-09] MEDS ORDERED: LIDOCAINE HCL 2% 20ML ONE (07:16)
[2019-06-09] MEDS ORDERED: PHENYLEPHRINE HCL 10 MG/ML 1ML VIAL IV ONE (07:21)
[2019-06-09 07:36] VITALS: BP 127/76
[2019-06-09 07:43] VITALS: BP 150/62
[2019-06-09 08:00] VITALS: BP 127/62
== END 2019-06-09 08:09 | disposition home or self-care (01) ==
LOC: DAH 05:42 → ENDO 05:42
PROVIDERS: ATTEND Internal Medicine Gastroenterology
DX: R16.0 Hepatomegaly, not elsewhere classified (principal); K29.50 Unspecified chronic gastritis without bleeding; K21.0 Gastro-esophageal reflux disease with esophagitis; I12.0 Hypertensive chronic kidney disease with stage 5 chronic kidney disease or end stage renal disease; E11.22 Type 2 diabetes mellitus with diabetic chronic kidney disease; N18.6 End stage renal disease; R18.8 Other ascites; I25.10 Atherosclerotic heart disease of native coronary artery without angina pectoris; R25.1 Tremor, unspecified; E78.5 Hyperlipidemia, unspecified; E66.01 Morbid (severe) obesity due to excess calories; Z79.4 Long term (current) use of insulin; Z79.899 Other long term (current) drug therapy; Z90.49 Acquired absence of other specified parts of digestive tract; Z95.5 Presence of coronary angioplasty implant and graft; Z98.890 Other specified postprocedural states; Z88.8 Allergy status to other drugs, medicaments and biological substances; Z68.34 Body mass index [BMI] 34.0-34.9, adult; Z99.2 Dependence on renal dialysis
CPT/HCPCS: 36415; 43239; 82948; 84132; 88305; A4215; A4221; A4222; A4223; A4606; A4620; A4663; J2370; J2704; J3490; J7030

== ENCOUNTER 2019-07-04 06:46 | Day surgery (SDC) | payer MEDICARE ==
[~2019-07-04] VITALS: Ht 157.5 cm; Wt 81.6 kg
[~2019-07-04 06:46] MED LIST changes: +AMLO-257 PO; -AMLO5TAB9 PO; +PANT40TA54 PO; +SODIUM CHLORIDE 0.9% 1000ML 1,000 ML IV ONE; +WHEA1POW2 PO
[2019-07-04 08:09] VITALS: BP 160/71
[2019-07-04 09:11] LABS: CREATININE 3.9 mg/dL (0.5-1.5); POTASSIUM 4.7 mmol/L (3.5-5.1)
[2019-07-04] MEDS ORDERED: PROPOFOL 10 MG/ML 20ML VIAL IV ONE ×2 (09:28→09:38)
[2019-07-04 10:13] VITALS: BP 114/54
[2019-07-04 10:18] VITALS: BP 121/51
[2019-07-04 10:23] VITALS: BP 122/54
[2019-07-04 10:28] VITALS: BP 123/85
== END 2019-07-04 10:40 | disposition home or self-care (01) ==
LOC: DAH 06:46 → ENDO 06:46
PROVIDERS: ATTEND Internal Medicine Gastroenterology
DX: Z12.11 Encounter for screening for malignant neoplasm of colon (principal); D12.0 Benign neoplasm of cecum; D12.2 Benign neoplasm of ascending colon; D12.4 Benign neoplasm of descending colon; D12.3 Benign neoplasm of transverse colon; D12.5 Benign neoplasm of sigmoid colon; D12.8 Benign neoplasm of rectum; K57.30 Diverticulosis of large intestine without perforation or abscess without bleeding; I12.0 Hypertensive chronic kidney disease with stage 5 chronic kidney disease or end stage renal disease; E11.22 Type 2 diabetes mellitus with diabetic chronic kidney disease; N18.6 End stage renal disease; E78.5 Hyperlipidemia, unspecified; E66.9 Obesity, unspecified; F32.9 Major depressive disorder, single episode, unspecified; Z86.010 Personal history of colon polyps; Z88.8 Allergy status to other drugs, medicaments and biological substances; Z79.899 Other long term (current) drug therapy; Z79.4 Long term (current) use of insulin; Z87.891 Personal history of nicotine dependence; Z72.89 Other problems related to lifestyle; Z98.890 Other specified postprocedural states; Z90.49 Acquired absence of other specified parts of digestive tract; Z68.32 Body mass index [BMI] 32.0-32.9, adult; Z82.49 Family history of ischemic heart disease and other diseases of the circulatory system; Z83.3 Family history of diabetes mellitus; Z82.5 Family history of asthma and other chronic lower respiratory diseases
CPT/HCPCS: 36415; 45380; 45385; 80048; 82948; 88305; A4215; A4221; A4222; A4223; A4606; A4615; A4649; A4663; J2704 ×2; J7030

== ENCOUNTER → 2020-01-02 | Outpatient (CLI) | payer MEDICARE ==
[~2020-01-02] MED LIST changes: -AMLO-257 PO; +AMLO5TAB9 PO; +PANT40TA25 PO; -PANT40TA54 PO; -SODIUM CHLORIDE 0.9% 1000ML 1,000 ML IV ONE
== END | disposition home or self-care (01) ==
LOC: RAH 10:04
PROVIDERS: ATTEND Family Medicine
DX: M19.011 Primary osteoarthritis, right shoulder (principal); R22.2 Localized swelling, mass and lump, trunk
CPT/HCPCS: 76536